=== PATIENT | female | born 1955 | race American Indian/Alaskan Native ===

== ENCOUNTER 2017-03-12 23:09 | Observation (INO) | payer OTHER ==
[~2017-03-12] VITALS: Ht 162.6 cm; Wt 80.0 kg
[2017-03-12 23:43] LABS: HEMATOCRIT 37.9 % (36.0-46.0); MCH 28.8 PG (29.0-34.0); MCHC 32.7 G/DL (30.0-36.0); MCV 88.1 FL (83-99); MEAN PLAT.VOLUME 10.8 uM^3 (9.5-12.4); PLATELET COUNT 225 K/uL (156-360); RBC DIS.WIDTH-CV 12.5 % (11.8-14.6); RBC DIS.WIDTH-SD 40.7 % (39-53); WHITE BLOOD COUNT 7.7 K/uL (4.1-10.2)
[2017-03-12 23:55] LABS: CHLORIDE 109 mEq/L (99-109); POTASSIUM 3.4 mEq/L (3.7-5.4); SODIUM 143 mEq/L (136-147)
[2017-03-12 23:58] LABS: GLUCOSE 176 mg/dL (70-99)
[2017-03-12 23:59] LABS: ANION GAP 9 MEQ/L (2-14)
[2017-03-13] LABS: TOTAL BILIRUBIN 0.2 mg/dL (0.0-1.0)
[2017-03-13 00:01] LABS: ALKALINE PHOSPHATASE 70 IU/L (3-129); GFR ESTIMATE (CALCULATED) > 59 mL/min/
[2017-03-13 00:02] LABS: UREA NITROGEN (BUN) 20 mg/dL (9-23)
[2017-03-13 00:04] LABS: TROP-I INTERPRETATION NEGATIVE; TROPONIN-I < 0.01 ng/mL (0.0-0.30)
[2017-03-13 01:36] LABS: LIPASE 32 U/L (1.0-51.0)
[2017-03-13] MEDS ORDERED: FIORICET,ESG1 TABLET PO (01:51)
[2017-03-13] MEDS ORDERED: NORVASC5 MG PO (01:52)
[2017-03-13] MEDS ORDERED: ERGOCALCIF50000 UNIT PO (01:52)
[2017-03-13] MEDS ORDERED: LISINOPRIL-HCT1 EACH PO (01:52)
[2017-03-13 04:49] VITALS: BP 184/79
[2017-03-13 04:53] LABS: HDL CHOLESTEROL 35 MG/DL (Desirable>=50); LDL CHOLESTEROL 128 mg/dL (Desirable<100); NON-HDL CHOLESTEROL 175 mg/dL (Desirable<160); SAMPLE HEMOLYSIS CHECK 0; SAMPLE ICTERIC CHECK 0; SAMPLE LIPEMIA CHECK 0; TOTAL CHOLESTEROL 210 mg/dL (Desirable<200); TRIGLYCERIDES 235 MG/DL (Normal: <150)
[2017-03-13 08:13] VITALS: BP 183/85
[2017-03-13 12:06] VITALS: BP 168/78
[2017-03-13 15:20] VITALS: BP 193/80
[2017-03-13 18:25] VITALS: BP 171/79
[2017-03-13 20:15] VITALS: BP 178/74
[2017-03-14 00:15] VITALS: BP 172/70
[2017-03-14 04:30] VITALS: BP 177/79
[2017-03-14 07:19] LABS: MCH 28.5 PG (29.0-34.0); MCV 89.1 FL (83-99); MEAN PLAT.VOLUME 11.4 uM^3 (9.5-12.4); PLATELET COUNT 215 K/uL (156-360); RBC DIS.WIDTH-CV 12.5 % (11.8-14.6); RBC DIS.WIDTH-SD 40.6 % (39-53); RED BLOOD COUNT 4.49 M/uL (3.80-5.20); WHITE BLOOD COUNT 6.4 K/uL (4.1-10.2)
[2017-03-14 07:44] LABS: ANION GAP 10 MEQ/L (2-14); CHLORIDE 105 MEQ/L (99-109); GFR ESTIMATE (CALCULATED) > 59 mL/min/; GLUCOSE 123 mg/dL (70-99); SAMPLE HEMOLYSIS CHECK 0; SAMPLE ICTERIC CHECK 0; SAMPLE LIPEMIA CHECK 0; SODIUM 144 MEQ/L (136-147); UREA NITROGEN (BUN) 15 mg/dL (9-23)
[2017-03-14 07:49] LABS: POTASSIUM 4.2 MEQ/L (3.7-5.4)
[2017-03-14 09:20] VITALS: BP 188/68
[2017-03-14 09:43] VITALS: BP 188/82
[2017-03-14 11:30] VITALS: BP 178/85
== END 2017-03-14 16:22 | disposition home or self-care (01) ==
LOC: EME → EDBD 23:09 → 5WEST 03-13 02:45 → EDOF 03-13 02:45 → 5WEST 03-13 04:09
PROVIDERS: Emergency Medicine; Internal Medicine
DX: T78.3XXA Angioneurotic edema, initial encounter (principal); R47.1 Dysarthria and anarthria; R73.9 Hyperglycemia, unspecified; I10 Essential (primary) hypertension; R47.81 Slurred speech; Z85.3 Personal history of malignant neoplasm of breast; E78.5 Hyperlipidemia, unspecified; M19.90 Unspecified osteoarthritis, unspecified site; E87.6 Hypokalemia
CPT/HCPCS: 70450; 71010; 80048; 80053; 80061; 82306; 82607; 83690; 84484; 85027; 93005; 99281; 99284; G0378; J1650; J7512

== ENCOUNTER 2017-05-12 08:38 | Emergency (ER) | payer OTHER ==
[~2017-05-12] VITALS: Ht 162.6 cm; Wt 80.0 kg
[~2017-05-12 08:38] MED LIST: ERGOCALCIF50000 UNIT PO; FIORICET,ESG1 TABLET PO; LISINOPRIL-HCT1 EACH PO; NORVASC5 MG PO
[2017-05-12 08:55] VITALS: BP 179/80
[2017-05-12] MEDS ORDERED: VOLTAREN 1% GE100 GM TP (10:45)
== END 2017-05-12 11:00 | disposition home or self-care (01) ==
LOC: EME 08:38
DX: M25.562 Pain in left knee (principal); I10 Essential (primary) hypertension; Z85.3 Personal history of malignant neoplasm of breast
CPT/HCPCS: 73564; 99281; 99284

== ENCOUNTER 2017-10-13 20:40 | Emergency (ER) | payer OTHER ==
[~2017-10-13] VITALS: Ht 162.6 cm; Wt 81.7 kg
[~2017-10-13 20:40] MED LIST changes: +VOLTAREN 1% GE100 GM TP
[2017-10-13 21:18] LABS: CHLORIDE 110 mEq/L (99-109); POTASSIUM 3.7 mEq/L (3.7-5.4); SODIUM 144 mEq/L (136-147)
[2017-10-13 21:19] LABS: HEMATOCRIT 37.2 % (36.0-46.0); MCH 29.5 PG (29.0-34.0); MCHC 33.1 G/DL (30.0-36.0); MCV 89.2 FL (83-99); MEAN PLAT.VOLUME 10.9 uM^3 (9.5-12.4); PLATELET COUNT 224 K/uL (156-360); RBC DIS.WIDTH-CV 12.9 % (11.8-14.6); RBC DIS.WIDTH-SD 42.1 % (39-53); RED BLOOD COUNT 4.17 M/uL (3.80-5.20); WHITE BLOOD COUNT 7.5 K/uL (4.1-10.2)
[2017-10-13 21:20] LABS: GLUCOSE 152 mg/dL (70-99)
[2017-10-13 21:21] LABS: ANION GAP 8 MEQ/L (2-14)
[2017-10-13 21:24] LABS: GFR ESTIMATE (CALCULATED) > 59 mL/min/; UREA NITROGEN (BUN) 17 mg/dL (9-23)
[2017-10-13 21:30] LABS: TROP-I INTERPRETATION NEGATIVE; TROPONIN-I < 0.01 ng/mL (0.0-0.30)
[2017-10-13 21:51] LABS: D-DIMER ELISA < 150.00 ng/mLDDU (<230)
[2017-10-13 23:36] LABS: TROP-I INTERPRETATION NEGATIVE; TROPONIN-I < 0.01 ng/mL (0.0-0.30)
[2017-10-14 00:27] VITALS: BP 120/49
== END 2017-10-14 00:29 | disposition home or self-care (01) ==
LOC: EME 20:40
PROVIDERS: Emergency Medicine
DX: R07.89 Other chest pain (principal); I10 Essential (primary) hypertension; E78.5 Hyperlipidemia, unspecified; Z82.49 Family history of ischemic heart disease and other diseases of the circulatory system; Z85.9 Personal history of malignant neoplasm, unspecified; Z88.5 Allergy status to narcotic agent; Z88.8 Allergy status to other drugs, medicaments and biological substances
CPT/HCPCS: 71020; 80048; 84484; 85027; 85379; 93005; 99281; 99284

== ENCOUNTER 2018-05-10 15:02 | Emergency (ER) | payer OTHER ==
[~2018-05-10] VITALS: Ht 162.6 cm; Wt 82.4 kg
[2018-05-10 16:01] LABS: HEMATOCRIT 39.6 % (36.0-46.0); HEMOGLOBIN 13.2 G/DL (11.9-15.5); MCH 29.1 PG (29.0-34.0); MCHC 33.3 G/DL (30.0-36.0); MCV 87.2 FL (83-99); PLATELET COUNT 264 K/uL (156-360); RBC DIS.WIDTH-CV 12.4 % (11.8-14.6); RBC DIS.WIDTH-SD 39.4 % (39-53); RED BLOOD COUNT 4.54 M/uL (3.80-5.20); WHITE BLOOD COUNT 8.9 K/uL (4.1-10.2)
[2018-05-10 16:10] LABS: ALBUMIN 4.3 g/dL (3.2-4.8); CHLORIDE 105 mEq/L (99-109); POTASSIUM 3.8 mEq/L (3.7-5.4); SODIUM 141 mEq/L (136-147)
[2018-05-10 16:13] LABS: GLUCOSE 123 mg/dL (70-99); TOTAL PROTEIN 7.5 g/dL (6.4-8.3)
[2018-05-10 16:14] LABS: TOTAL BILIRUBIN 0.3 mg/dL (0.0-1.0)
[2018-05-10 16:16] LABS: ALKALINE PHOSPHATASE 107 IU/L (3-129); CREATININE 0.9 mg/dL (0.6-1.3); GFR ESTIMATE (CALCULATED) > 59 mL/min/
[2018-05-10 16:17] LABS: UREA NITROGEN (BUN) 20 mg/dL (9-23)
[2018-05-10 16:18] LABS: AST (GOT) 14 IU/L (2-34)
[2018-05-10 16:19] LABS: ALT (GPT) 18 IU/L (3-49)
[2018-05-10 17:22] LABS: APPEARANCE SL.HAZY ((CLEAR)); BILIRUBIN NEGATIVE; BLOOD NEGATIVE; COLOR YELLOW ((YELLOW)); GLUCOSE (STRIP) NEGATIVE; KETONES NEGATIVE; LEUKOCYTES NEGATIVE; NITRITE NEGATIVE; PROTEIN (STRIP) NEGATIVE; SPECIFIC GRAVITY 1.018 (1.000-1.030); UROBILINOGEN 0.2 MG/DL (0.2-1.0)
[2018-05-10 17:26] LABS: BACTERIA RARE /HPF; EPITHELIAL CELLS 1+ /HPF; MUCUS TRACE /LPF; RED BLOOD CELLS 0-5 /HPF (0-5); UCUL ADDED? NO; WHITE BLOOD CELLS 0-5 /HPF (0-5)
[2018-05-10 17:57] LABS: TROP-I INTERPRETATION NEGATIVE; TROPONIN-I < 0.01 ng/mL (0.0-0.30)
[2018-05-10 18:14] LABS: LIPASE 23 U/L (1.0-51.0)
[2018-05-10 19:52] LABS: TROP-I INTERPRETATION NEGATIVE; TROPONIN-I 0.02 ng/mL (0.0-0.30)
[2018-05-10] MEDS ORDERED: PRILOSEC20 MG PO (20:03)
[2018-05-10 20:33] VITALS: BP 190/81
== END 2018-05-10 20:34 | disposition home or self-care (01) ==
LOC: EME 15:02 → RME 15:02
PROVIDERS: Physician Assistant
DX: R10.13 Epigastric pain (principal); R06.02 Shortness of breath; N20.0 Calculus of kidney; I10 Essential (primary) hypertension; E78.5 Hyperlipidemia, unspecified; R56.9 Unspecified convulsions; Z85.9 Personal history of malignant neoplasm, unspecified; Z88.5 Allergy status to narcotic agent; Z88.8 Allergy status to other drugs, medicaments and biological substances
CPT/HCPCS: 71046; 74176; 80053; 81003; 83690; 84484; 85027; 93005; 99281; 99284